=== PATIENT | female | born 1965 | race Caucasian/White ===

== ENCOUNTER 2019-08-11 10:14 | Outpatient (CLI) | payer OTHER, SELFPAY ==
--- NOTE | ~2019-08-11 | MR_ITS ---
EXAMINATION: MR cervical spine wo con DATE: 08/11/2019 12:28 INDICATION: Chronic neck pain. TECHNIQUE: Magnetic resonance imaging (MRI) of the cervical spine was performed without intravenous c ontrast. Sequences included sagittal T2-weighted FSE, sagittal STIR FSE, sagittal T1-weighted FSE, ax ial MERGE, and axial T2-weighted FSE. COMPARISON: None FINDINGS: There is kyphosis of cervical spine. Vertebral body heights are normal. There is mildly dec reased disc height at C4-C5 and C5-C6. The spinal cord signal intensity is normal. The following disc levels are specifically discussed: C2-C3: The disc does not extend beyond the endplate margin. There is mild left uncovertebral joint os teoarthritis. There is severe right and mild left facet joint osteoarthritis. There is no neural fora harper stenosis. There is no central canal stenosis. C3-C4: The disc does not extend beyond the endplate margin. There is no uncovertebral joint osteoarth ritis. There is mild bilateral facet joint osteoarthritis. There is no neural foraminal stenosis. The re is no central canal stenosis. C4-C5: The disc does not extend beyond the endplate margin. There is no uncovertebral joint osteoarth ritis. There is mild bilateral facet joint osteoarthritis. There is no neural foraminal stenosis. The re is no central canal stenosis. C5-C6: There is a right central protrusion. There is mild right uncovertebral joint osteoarthritis. T here is mild bilateral facet joint osteoarthritis. There is no neural foraminal stenosis. There is mi ld central canal stenosis with ventral indentation of the spinal cord. C6-C7: There is a central extrusion. There is no uncovertebral joint osteoarthritis. There is mild bi lateral facet joint osteoarthritis. There is no neural foraminal stenosis. There is mild central maria luz l stenosis with ventral indentation of the spinal cord. C7-T1: The disc does not extend beyond the endplate margin. There is no uncovertebral joint osteoarth ritis. There is mild bilateral facet joint osteoarthritis. There is no neural foraminal stenosis. The re is no central canal stenosis. IMPRESSION: 1. Mild cervical spondylosis. Reviewed, dictated and finalized at location A.
== END 2019-08-11 10:15 | disposition home or self-care (01) ==
PROVIDERS: PCP Family Medicine; Visit Provider Family Medicine
DX: M47.892 Other spondylosis, cervical region (principal)
CPT/HCPCS: 72141

== ENCOUNTER → 2021-07-21 03:39 | Outpatient (CLI) | payer OTHER, SELFPAY ==
[2021-07-21 11:14] LABS: SARS-CoV-2 RNA PCR Negative
== END ==
PROVIDERS: PCP Family Medicine; Visit Provider Family Medicine
DX: R50.9 Fever, unspecified (principal); Z20.822 Contact with and (suspected) exposure to COVID-19
CPT/HCPCS: C9803; U0003; U0005

== ENCOUNTER 2021-09-05 14:34 | Emergency (ER) | payer OTHER, SELFPAY ==
--- NOTE | 2021-09-05 14:40 | ED.URI ---
HPI - URI/Sore Throat General Chief Complaint: Upper Respiratory Infection Stated Complaint: congestion,cough Time Seen by Provider: 09/05/21 14:45 Source: patient and RN notes reviewed Mode of arrival: ambulatory Limitations: no limitations History of Present Illness HPI Narrative: 56-year-old female presents with concern for 4-day history of cough, postnasal drainage, nasal congestion. She reports she has been taking DayQuil and NyQuil with little relief. She denies shortness of breath, fever, body aches, chills, sweats, nausea, vomiting, diarrhea. She denies known sick contacts. MD elicited complaint: cough and sore throat Related Data Home Medications Medication Instructions Recorded Confirmed atorvastatin [Lipitor] 80 mg PO DAILY 09/05/21 09/05/21 Allergies Allergy/AdvReac Type Severity Reaction Status Date / Time No Known Allergies Allergy Verified 09/05/21 14:47 Review of Systems Review of Systems: CONSTITUTIONAL: Denies malaise, chills, sweats, or fever. EYES: Denies visual changes, redness, or discharge. ENT: Reports rhinorrhea, congestion, and sore throat. Denies sinus pain, otalgia CARDIOVASCULAR: Denies chest pain, palpitations, or edema. RESPIRATORY: Reports cough. Denies dyspnea. GASTROINTESTINAL: Denies abdominal pain, nausea, vomiting, diarrhea SKIN: Denies rash or itching. MUSCULOSKELETAL: Denies myalgia. NEUROLOGIC: Denies headache. All systems reviewed & are unremarkable except as noted in HPI and below PMFSH Comments At time of signature, agree with nursing past medical, surgical, social and family history. There is no relevant family history pertinent to the presenting complaint Exam Narrative: GENERAL: Well-appearing, well-nourished, and in no acute distress. HEAD: Normocephalic EYES: PERRLA, conjunctivae clear ENT: Nares clear, clear discharge. Mucous membranes moist. TM pearly urbina with sharp light reflex bilaterally; no tragal tenderness. Oropharynx not erythematous without lesions. Tonsils not enlarged and without exudate, no drooling, no hoarseness, no trismus, uvula midline. NECK: Supple. No lymphadenopathy CHEST: Clear to auscultation, breath sounds equal. No wheezing, rhonchi, rales, or stridor. No respiratory distress, speaks in full sentences. HEART: Regular rate and rhythm. No murmur heard. SKIN: Warm, dry, no rash. NEURO: Alert and oriented x3. PSYCH: Normal mood and affect Course Course Emergency Course: Patient is aware of diagnosis, understands and agrees to treatment plan. Anticipatory guidance given. Patient agrees to follow-up as directed and is aware of reasons to seek care at the emergency department. Portions of this record may have been created with voice recognition software Level of Care: Express Care Visit Vital Signs Vital signs: Reviewed. MDM - URI/Sore Throat MDM Narrative Medical decision making narrative: Differential diagnosis considered: Velasco virus, strep pharyngitis, allergic rhinitis, upper respiratory tract infection, sinusitis, rhinosinusitis, nasopharyngitis. viral pharyngitis, otitis media, otitis externa, pneumonia, bronchitis, viral cough syndrome, viral syndrome, and influenza. Exam findings show no acute concerns or changes; patient is non-toxic appearing and is in no distress. Patient is appropriate for outpatient treatment and follow-up. Offered viral testing, including COVID testing to patient. At this time based on patient's symptoms are consistent with URI Lab Data Attestation: I reviewed the patient's lab results. Critical Care Time Critical Care Time Critical Care Time: No Discharge Plan Discharge Clinical Impression: Upper respiratory infection Qualifiers: URI type: unspecified viral URI Qualified Code(s): J06.9 - Acute upper respiratory infection, unspecified Patient Disposition: Home, Self-Care Condition: Stable Instructions: Upper Respiratory Infection (ED) Additional Instructions: Viral illness may last betwee
[2021-09-05 14:44] VITALS: BP 115/56; PULSE 78; RESP 18; TEMP 36.2; O2SAT 99
[2021-09-05 15:02] VITALS: BP 110/82; PULSE 78
== END 2021-09-05 15:02 | disposition home or self-care (01) ==
PROVIDERS: Emergency Provider Nurse Practitioner; PCP Family Medicine
DX: J06.9 Acute upper respiratory infection, unspecified (principal); E78.00 Pure hypercholesterolemia, unspecified
CPT/HCPCS: 99213; G0463

== ENCOUNTER 2022-06-28 15:19 | Emergency (ER) | payer BC, SELFPAY ==
[2022-06-28 15:33] VITALS: BP 150/99; PULSE 93; RESP 18; TEMP 36.6; O2SAT 99
--- NOTE | 2022-06-28 16:00 | ED.URI ---
HPI - URI/Sore Throat General Chief Complaint: Upper Respiratory Infection Stated Complaint: congestion,cough Time Seen by Provider: 06/28/22 15:55 Source: patient, RN notes reviewed and old records reviewed Mode of arrival: ambulatory Limitations: no limitations History of Present Illness HPI Narrative: 57 year old female presents to express care with complaints of stuffy nose, cough with congestion since around midnight Saturday has felt feverish but has not taken her temperature. Patient reports that she has been taking Robitussin and NyQuil for her symptoms. Patient reports that her has also been ill with similar symptoms. Patient denies any ear pain or sore throat, reports that she would like to be tested for COVID which was negative refused flu swab. Patient states that she has been vaccinated For COVID but has not had flu shot. Needs work note. MD elicited complaint: cough and sore throat Pertinent past history: seasonal allergies and other (bronchitis) Onset (ago): day(s) (2) Pain scale (0-10): 6 Description of mucous: yellow Able to tolerate fluids by mouth: Yes Treatments prior to arrival: other (NyQuil and Robitussin) Related Data Home Medications Medication Instructions Recorded Confirmed lisinopril 5 mg tablet 5 mg PO DAILY 06/28/22 06/28/22 Allergies Allergy/AdvReac Type Severity Reaction Status Date / Time No Known Allergies Allergy Verified 06/28/22 15:35 Review of Systems Review of Systems: CONSTITUTIONAL: Reports malaise, chills, sweats, unknown if fever.has had hot flashes EYES: Denies visual changes, redness, or discharge. ENT: Reports rhinorrhea, congestion, sinus pain, otalgia and sore throat. CARDIOVASCULAR: Denies chest pain, palpitations, or edema. RESPIRATORY: Reports productive cough.? Denies dyspnea. GASTROINTESTINAL: Denies abdominal pain, nausea, vomiting, diarrhea SKIN: Denies rash or itching. MUSCULOSKELETAL: Denies myalgia. NEUROLOGIC: Denies headache. 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 There is no relevant family history pertinent to the presenting complaint Exam Narrative: GENERAL: Well-appearing, well-nourished, and in no acute distress. HEAD: Normocephalic EYES: PERRLA, conjunctivae clear ENT: Nares clear, turbinates edematous and erythematous, yellowish discharge. Mucous membranes moist. TM pearly urbina with dull light reflex bilaterally; no tragal tenderness. Oropharynx erythematous without lesions. Tonsils red minimally enlarged and without exudate, no drooling, no hoarseness, no trismus, uvula midline. post nasal drainage noted. NECK: Supple. No lymphadenopathy CHEST: Clear to auscultation, breath sounds equal. No wheezing, rhonchi, rales, or stridor. No respiratory distress, speaks in full sentences.loose cough, SAO2 99% on room air HEART: Regular rate and rhythm. No murmur heard. SKIN: Warm, dry, no rash. NEURO: Alert and oriented x3. PSYCH: Normal mood and affect Course Course Emergency Course: Patient is aware of diagnosis, understands and agrees to treatment plan.? Anticipatory guidance given.? Patient agrees to follow-up as directed and is aware of reasons to seek care at the emergency department. Portions
== END 2022-06-28 16:17 | disposition home or self-care (01) ==
PROVIDERS: Emergency Provider Registered Nurse; PCP Family Medicine
DX: J06.9 Acute upper respiratory infection, unspecified (principal); Z20.822 Contact with and (suspected) exposure to COVID-19; E78.00 Pure hypercholesterolemia, unspecified; N80.9 Endometriosis, unspecified; I10 Essential (primary) hypertension
CPT/HCPCS: 87426; 99213; C9803; G0463

== ENCOUNTER 2022-07-28 18:26 | Emergency (ER) | payer BC, SELFPAY ==
--- NOTE | 2022-07-28 18:49 | ED.GENADULT ---
HPI - General Adult General Chief complaint: Upper Respiratory Infection Stated complaint: congestion,cough Time Seen by Provider: 07/28/22 18:49 Source: patient Mode of arrival: ambulatory Limitations: no limitations History of Present Illness HPI narrative: 57-year-old female patient presents to the [facility] with complaints of cold symptoms that started yesterday. Denies fevers but states she has had some chills. States she has had a cough, runny nose fatigue and just overall not feeling well. Patient denies taking anything for her symptoms. Related Data Home Medications Medication Instructions Recorded Confirmed lisinopril 5 mg tablet 5 mg PO DAILY 07/28/22 07/28/22 Allergies Allergy/AdvReac Type Severity Reaction Status Date / Time No Known Allergies Allergy Verified 07/28/22 18:53 Review of Systems Review of Systems: CONSTITUTIONAL: Denies fever, positive chills, or sweats. EYES: Denies visual changes, redness, or discharge. ENT:positive rhinorrhea, congestion, denies sore throat, or otalgia. CARDIOVASCULAR: Denies chest pain, palpitations, or edema. RESPIRATORY: positive cough or dyspnea. GASTROINTESTINAL: Denies abdominal pain, nausea, vomiting, or diarrhea. GENITOURINARY: Denies dysuria or hematuria. SKIN: Denies rash or itching. MUSCULOSKELETAL: Denies back pain, joint pain, or myalgia. NEUROLOGIC: Denies headache, numbness, or weakness. PSYCHIATRIC: Denies anxiety or depression. 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 There is no relevant family history pertinent to the presenting complaint. Exam Narrative: GENERAL: Well-appearing, well-nourished, and in no acute distress. HEAD: Normocephalic, atraumatic. EYES: PERRLA and EOMI. ENT: Nares with erythema edema noted bilaterally, no rhinorrhea or epistaxis. Mucous membranes moist. posterior pharynx with no erythema, tonsillar enlargement, exudates or lesions present. Bilateral TMs are clear with no erythema or foreign bodies the canal. NECK: Supple. No lymphadenopathy CHEST: Clear to auscultation. No respiratory distress. No wheezing noted. Patient able talk in clear complete sentences. HEART: Regular rate and rhythm. No murmur heard. Normal peripheral pulses. ABDOMEN: Soft, nontender, nondistended, normal active bowel sounds. EXTREMITIES: Normal range of motion. No edema. SKIN: Warm, dry, no rash. NEURO: No focal deficits. Alert and oriented x3. Course Course Level of Care: Express Care Visit Vital Signs Vital signs: Vital Signs Temperature 36.3 C L 07/28/22 18:53 Pulse Rate 93 07/28/22 18:53 Respiratory Rate 20 07/28/22 18:53 Blood Pressure 103/58 L 07/28/22 18:53 Pulse Oximetry 100 07/28/22 18:53 Oxygen Delivery Room Air 07/28/22 18:53 Temperature 36.3 C L 07/28/22 19:00 Pulse Rate 93 07/28/22 19:00 Respiratory Rate 20 07/28/22 19:00 Blood Pressure 103/58 L 07/28/22 19:00 Pulse Oximetry 100 07/28/22 19:00 Oxygen Delivery Room Air 07/28/22 19:00 Vital signs reviewed. Blood pressure taken manually was 106/70. Medical Decision Making MDM Narrative Medical decision making narrative: Discussed with patient that her COVID test today is negative however we will do a PCR incident to the lab. Discussed with patient she most likely
[2022-07-28 18:53] VITALS: BP 103/58; PULSE 93; RESP 20; TEMP 36.3; O2SAT 100
[2022-07-28 19:00] VITALS: BP 103/58; PULSE 93; RESP 20; TEMP 36.3; O2SAT 100
[2022-07-28 19:15] VITALS: BP 106/70
[2022-07-29 14:53] LABS: SARS-CoV-2 RNA PCR Negative
== END 2022-07-28 19:15 | disposition home or self-care (01) ==
PROVIDERS: Emergency Provider Nurse Practitioner Family; PCP Family Medicine
DX: B34.9 Viral infection, unspecified (principal); Z20.822 Contact with and (suspected) exposure to COVID-19; E78.00 Pure hypercholesterolemia, unspecified; N80.9 Endometriosis, unspecified; I10 Essential (primary) hypertension
CPT/HCPCS: 87426; 99213; C9803; G0463; U0003; U0005

== ENCOUNTER 2022-12-17 14:39 | Emergency (ER) | payer BC, SELFPAY ==
[2022-12-17 14:48] VITALS: BP 148/82; PULSE 79; RESP 18; TEMP 36.6; O2SAT 99
--- NOTE | 2022-12-17 14:49 | ED.EYEPROB ---
HPI - Eye Problem General Chief complaint: Eye Problems Stated complaint: swollen rt eye,rash Time Seen by Provider: 12/17/22 14:53 Source: patient Mode of arrival: ambulatory Limitations: no limitations History of Present Illness HPI Narrative: 57-year-old female presented for complaint of rash to face and under the right ear and base of neck, also with right eye swelling. Patient states the rash extends across the forehead, described as bumps. Endorses some itching and pain to the sites. Rates pain 6/10. Denies drainage. Reports the right eye was swollen since yesterday morning, denies crust or drainage. Eye was not swollen shut. Denies sick contacts. Denies recent illness or stress. States she works her yard but nothing out of the ordinary. Denies lip, tongue, or throat swelling, shortness of breath or wheezing. Denies changes to soap, detergent, lotion, or any other exposures. No one else in the house or any contacts with similar symptoms. She has applied neosporin and calamine without significant relief. Related Data Home Medications Medication Instructions Recorded Confirmed lisinopril 5 mg tablet 5 mg PO DAILY 07/28/22 12/17/22 allopurinol 100 mg tablet 100 mg PO DAILY 12/17/22 12/17/22 atorvastatin 40 mg tablet 40 mg PO DAILY 12/17/22 12/17/22 Allergies Allergy/AdvReac Type Severity Reaction Status Date / Time No Known Allergies Allergy Verified 12/17/22 14:58 Review of Systems Review of Systems: CONSTITUTIONAL: Denies body aches, fever, chills, or sweats. EYES: Denies visual changes, redness, or discharge. ENT: Denies rhinorrhea, congestion CARDIOVASCULAR: Denies chest pain, palpitations, or edema. RESPIRATORY: Denies cough or dyspnea. GASTROINTESTINAL: Denies abdominal pain, nausea, vomiting, or diarrhea. SKIN: reports rash MUSCULOSKELETAL: Denies back pain, joint pain, or myalgia. NEUROLOGIC: Denies headache, numbness, tingling, or weakness. 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 Please see nursing chart for further information. There is no relevant family history pertinent to the presenting complaint Exam Narrative: GENERAL: Well-appearing HEAD: Normocephalic, atraumatic. EYES: Mild right periorbital swelling, no occlusion, no purulent drainage; conjunctivae clear, and EOMI. ENT: Mucous membranes moist. Oropharynx without edema, erythema or lesions. NECK: Supple. No lymphadenopathy CHEST: Clear to auscultation. HEART: Regular rate and rhythm. SKIN: Warm, dry. Scattered erythematous papules noted across the forehead, posterior to the right ear approx 2.5cm diameter, and base of the hairline on the neck approx 2cm diameter NEURO: Alert and oriented x3. Course Course Emergency Course: Patient is aware of diagnosis, understands and agrees to treatment plan. Anticipatory guidance given. Patient agrees to follow-up as directed and is aware of reasons to seek care at the emergency department. Portions of this record may have been created with voice recognition software Level of Care: Express Care Visit Vital Signs Vital signs: Vital Signs Temperature 97.9 F 12/17/22 14:48 Pulse Rate 79 12/17/22 14:48 Respiratory Rate 18 12/17/22 14:48 Blood Pressure 148/82 H 12/17/22 14:48
== END 2022-12-17 15:11 | disposition home or self-care (01) ==
PROVIDERS: Emergency Provider Nurse Practitioner Family; PCP Family Medicine
DX: L30.9 Dermatitis, unspecified (principal); E78.00 Pure hypercholesterolemia, unspecified; I10 Essential (primary) hypertension; N80.9 Endometriosis, unspecified
CPT/HCPCS: 99213; G0463

== ENCOUNTER 2023-02-04 10:57 | Emergency (ER) | payer BC, SELFPAY ==
[2023-02-04 11:19] VITALS: BP 112/72; PULSE 74; RESP 18; TEMP 36.4; O2SAT 98
--- NOTE | 2023-02-04 11:30 | ED.URI ---
HPI - URI/Sore Throat General Chief Complaint: Upper Respiratory Infection Stated Complaint: Cough,Congestion Time Seen by Provider: 02/04/23 11:30 Source: patient Mode of arrival: ambulatory Limitations: no limitations History of Present Illness HPI Narrative: 57-year-old female presents with complaint of nasal congestion, cough, fatigue sodium last night. Afebrile reports that she had sore throat this morning but has resolved. Denies nausea vomiting. Patient took NyQuil last night to treat symptoms. No chest pain or shortness of breath. All systems reviewed and negative except as noted above. Related Data Home Medications Medication Instructions Recorded Confirmed lisinopril 5 mg tablet 5 mg PO DAILY 07/28/22 02/04/23 allopurinol 100 mg tablet 100 mg PO DAILY 12/17/22 02/04/23 atorvastatin 40 mg tablet 40 mg PO DAILY 12/17/22 02/04/23 aspirin 81 mg tablet,delayed 81 mg PO DAILY 02/04/23 02/04/23 release ergocalciferol (vitamin D2) 1,250 50,000 unit PO WEEKLY 02/04/23 02/04/23 mcg (50,000 unit) capsule metformin 500 mg tablet,extended 500 mg PO BID 02/04/23 02/04/23 release 24 hr Allergies Allergy/AdvReac Type Severity Reaction Status Date / Time No Known Allergies Allergy Verified 02/04/23 11:15 Review of Systems Review of Systems: CONSTITUTIONAL: Denies fever, chills, or sweats. EYES: Denies visual changes, redness, or discharge. ENT: Reports rhinorrhea, congestion, sore throat. Denies otalgia. CARDIOVASCULAR: Denies chest pain, palpitations, or edema. RESPIRATORY: reports cough. Denies dyspnea. GASTROINTESTINAL: Denies abdominal pain, nausea, vomiting, or diarrhea. GENITOURINARY: Denies dysuria or hematuria. SKIN: Denies rash or itching. MUSCULOSKELETAL: Denies back pain, joint pain, or myalgia. NEUROLOGIC: Denies headache, numbness, or weakness. PSYCHIATRIC: Denies anxiety or depression. All other systems reviewed are negative, except as documented in HPI. 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 There is no relevant family history pertinent to the presenting complaint. Exam Narrative: GENERAL: This is a well-nourished, well-developed patient, Patient ill-appearing but in no acute distress. HEAD: normocephalic, atraumatic. EYES: PERRL. Sclera clear/white. Vision is grossly intact. EARS: External ears normal, auditory canals clear and without drainage, TMs normal without perforation. Hearing grossly intact. NOSE: External nose normal with clear nasal drainage, moderate congestion with erythema and swelling to bilateral nares. THROAT: Mucous membranes moist, Mild erythema to posterior pharynx with postnasal drainage. NECK: Neck supple, non-tender without lymphadenopathy, masses or thyromegaly. CARDIOVASCULAR: Regular rate and rhythm without murmurs, gallops, or rubs. RESPIRATORY: Clear to auscultation. Breath sounds equal bilaterally. No wheezes, rales, or rhonchi. SKIN: warm, Dry, intact with no suspicious lesions or rash, good texture and turgor. NEURO: awake, alert, and oriented to person, place and time. There were no obvious focal neurologic abnormalities. EXTREMITIES: No joint tenderness, effusion, or edema noted. Course Course Level of Care: Express Care Visit Vital Signs Vital signs: Vital Signs Temperature
== END 2023-02-04 11:45 | disposition home or self-care (01) ==
PROVIDERS: Emergency Provider Nurse Practitioner Family; PCP Family Medicine
DX: J06.9 Acute upper respiratory infection, unspecified (principal); E78.00 Pure hypercholesterolemia, unspecified; N80.9 Endometriosis, unspecified; I10 Essential (primary) hypertension; Z79.82 Long term (current) use of aspirin
CPT/HCPCS: 99213; G0463

== ENCOUNTER 2023-04-19 10:49 | Emergency (ER) | payer BC, SELFPAY ==
[2023-04-19 10:58] VITALS: BP 94/68; PULSE 73; RESP 16; TEMP 36.1; O2SAT 100
--- NOTE | 2023-04-19 11:59 | ED.GENADULT ---
HPI - General Adult General Chief complaint: Urogenital-Female Stated complaint: Female Urogenital Source: patient, RN notes reviewed and old records reviewed Mode of arrival: ambulatory Limitations: no limitations History of Present Illness HPI narrative: 57-year-old female presents to [facility] with complaint of vaginal itching, with slight amount of white thick vaginal discharge that started 10 days ago. Patient states has tried Vagisil and baking soda baths without relief. Patient denies urinary symptoms. Patient denies concerns for STDs. Patient denies sores or lesions in her vaginal area. Patient states she is not diabetic. Related Data Home Medications Medication Instructions Recorded Confirmed lisinopril 5 mg tablet 5 mg PO DAILY 07/28/22 04/19/23 allopurinol 100 mg tablet 100 mg PO DAILY 12/17/22 04/19/23 atorvastatin 40 mg tablet 40 mg PO DAILY 12/17/22 04/19/23 aspirin 81 mg tablet,delayed 81 mg PO DAILY 02/04/23 04/19/23 release ergocalciferol (vitamin D2) 1,250 50,000 unit PO WEEKLY 02/04/23 04/19/23 mcg (50,000 unit) capsule metformin 500 mg tablet,extended 500 mg PO BID 02/04/23 04/19/23 release 24 hr empagliflozin 25 mg tablet 25 mg PO DAILY 04/19/23 04/19/23 (Jardiance) furosemide 20 mg tablet 10 mg PO DAILY 04/19/23 04/19/23 Allergies Allergy/AdvReac Type Severity Reaction Status Date / Time No Known Allergies Allergy Verified 04/19/23 11:08 Review of Systems Review of Systems: All systems reviewed & are unremarkable except as noted in HPI and below Constitutional: Constitutional: Reports no additional constitutional complaints Eyes: Eyes: Reports no additional eye complaints ENT: Reports system reviewed and no additional complaints, except as documented Cardiovascular: Cardiovascular: Reports no additional cardiovascular complaints Respiratory: Respiratory: Reports no additional respiratory complaints Genitourinary: Genitourinary: Denies nocturia, Reports genital pruritis, Denies genital lesions, Denies dysuria, Denies pelvic pain, Denies prolapse symptoms, Denies urinary incontinence, Denies urinary hesitancy, Denies urinary urgency, Reports vaginal discharge ( Thick white), Denies vaginal dryness, Denies vaginal odor and Reports vaginal pruritus Neurologic: Reports system reviewed and no additional complaints, except as documented PMFSH Past Medical History Medical History Elevated cholesterol Endometriosis determined by laparoscopy Hypertension Postmenopausal Seasonal allergies Surgical History Surgical History Hx of laparoscopy X2 Social History Social History Smoking status: Never smoker Living arrangements: with family 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 There is no relevant family history pertinent to the patient complaint. Exam Const: General: cooperative, healthy appearing, no acute distress and well nourished Nutritional Appearance: well nourished Orientation/consciousness: patient oriented x3 Limitations: no limitations HENMT: Head: normal to inspection and normocephalic Ears: external ears normal, TM's normal bilaterally, mastoids normal and Abnormal EAC present Face/Nose/Sinus: normal facial exam Face and sinus: normal facial exam Mouth: Yes Normal oral and palatal mucosa present, Yes oropharynx normal and Yes moist mucous membranes Throat: posterior oropharynx normal, tonsils normal, uvula midline and no uvular edema Eyes: General: appearance normal, both eyes and all related structures Sclera: sclerae normal Pupils: Equal, round and reactive pupils present Resp: Ef
== END 2023-04-19 12:06 | disposition home or self-care (01) ==
PROVIDERS: Emergency Provider Registered Nurse; PCP Family Medicine
DX: B37.31 Acute candidiasis of vulva and vagina (principal); E78.00 Pure hypercholesterolemia, unspecified; I10 Essential (primary) hypertension; N80.9 Endometriosis, unspecified; Z79.82 Long term (current) use of aspirin
CPT/HCPCS: 99213; G0463

== ENCOUNTER 2024-01-28 10:52 | Emergency (ER) | payer BC, SELFPAY ==
[2024-01-28 10:59] VITALS: BP 119/74; PULSE 86; RESP 16; TEMP 36.2; O2SAT 100
--- NOTE | 2024-01-28 11:11 | ED.URI ---
HPI - URI/Sore Throat General Chief Complaint: Upper Respiratory Infection Stated Complaint: congestion Time Seen by Provider: 01/28/24 11:11 Source: patient and RN notes reviewed Mode of arrival: ambulatory Limitations: no limitations History of Present Illness HPI Narrative: 58-year-old female presents concern for one-week history of sinus congestion, pressure, dark yellow drainage, fatigue, cough. She reports she has been taking DayQuil and NyQuil without relief. MD elicited complaint: cough and nasal congestion Related Data Home Medications Medication Instructions Recorded Confirmed lisinopril 5 mg tablet 5 mg PO DAILY 07/28/22 01/28/24 allopurinol 100 mg tablet 100 mg PO DAILY 12/17/22 01/28/24 atorvastatin 40 mg tablet 40 mg PO DAILY 12/17/22 01/28/24 aspirin 81 mg tablet,delayed 81 mg PO DAILY 02/04/23 01/28/24 release ergocalciferol (vitamin D2) 1,250 50,000 unit PO WEEKLY 02/04/23 01/28/24 mcg (50,000 unit) capsule empagliflozin 25 mg tablet 25 mg PO DAILY 04/19/23 01/28/24 (Jardiance) furosemide 20 mg tablet 10 mg PO DAILY 04/19/23 01/28/24 mirtazapine 30 mg tablet 30 mg PO HS 01/28/24 01/28/24 phentermine 30 mg capsule 30 mg PO DAILY 01/28/24 01/28/24 Allergies Allergy/AdvReac Type Severity Reaction Status Date / Time No Known Allergies Allergy Verified 01/28/24 11:00 Review of Systems Review of Systems: CONSTITUTIONAL: Reports malaise, fatigue. Denies chills, sweats, or fever. EYES: Denies visual changes, redness, or discharge. ENT: Reports rhinorrhea, congestion, sinus pain CARDIOVASCULAR: Denies chest pain, palpitations, or edema. RESPIRATORY: Reports cough. Denies dyspnea. GASTROINTESTINAL: Denies abdominal pain, nausea, vomiting, diarrhea SKIN: Denies rash or itching. MUSCULOSKELETAL: Denies myalgia. NEUROLOGIC: Denies headache. 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 There is no relevant family history pertinent to the presenting complaint Exam Narrative: GENERAL: Well-appearing, well-nourished, and in no acute distress. HEAD: Normocephalic EYES: PERRLA, conjunctivae clear ENT: Nares clear. Mucous membranes moist. TM pearly urbina with dull light reflex bilaterally; no tragal tenderness. Oropharynx not erythematous without lesions. Tonsils not enlarged and without exudate, no drooling, no hoarseness, no trismus, uvula midline. NECK: Supple. No lymphadenopathy CHEST: Clear to auscultation, breath sounds equal. No wheezing, rhonchi, rales, or stridor. No respiratory distress, speaks in full sentences. HEART: Regular rate and rhythm. No murmur heard. SKIN: Warm, dry, no rash. NEURO: Alert and oriented x3. PSYCH: Normal mood and affect Course Course Emergency Course: Patient is aware of diagnosis, understands and agrees to treatment plan. Anticipatory guidance given. Patient agrees to follow-up as directed and is aware of reasons to seek care at the emergency department. Portions of this record may have been created with voice recognition software Level of Care: Express Care Visit Vital Signs Vital signs: Vital Signs Temperature 97.1 F L 01/28/24 10:59 Pulse Rate 86 01/28/24 10:59 Respiratory Rate 16 01/28/24 10:59 Blood Pressure 119/74
== END 2024-01-28 11:19 | disposition home or self-care (01) ==
PROVIDERS: Emergency Provider Nurse Practitioner; PCP Family Medicine
DX: J32.9 Chronic sinusitis, unspecified (principal); J40 Bronchitis, not specified as acute or chronic; E78.00 Pure hypercholesterolemia, unspecified; I10 Essential (primary) hypertension; N80.9 Endometriosis, unspecified; Z79.82 Long term (current) use of aspirin
CPT/HCPCS: 99213; G0463

== ENCOUNTER 2025-03-28 10:50 | Emergency (ER) | payer BC, SELFPAY ==
--- OUTSIDE RECORDS SUMMARY | 2024-05-26 06:00 | XMS_ITS ---
Author Organization [facility] Address [address] [place] [address] Care Team Providers Care Community Education Coordinator Name Role Phone Keshia Sosa Primary Care Provider [phone] REASON FOR VISIT 3 Month Psych F/U & Med Refill Social History Sex Assigned At : Social History Observation Description Sex Assigned At Female Encounters Encounter Location Date Provider Diagnosis [place] [address] [place] [address] 05/26/2024 Keshia Sosa Plan Of Treatment No Information Progress Notes * Chris ALLREDB:1965 ([age] yo F)Acc No.[id number]:05/26/2024 UNLOCKED PROGRESS NOTE Patient: Ericka SONG Provider: ASTER Navarro, SALES REP, CULL GRADER-C :1965 A ge:59 Y S ex:Female Date:05/26/2024 Address:[address] [facility] Subjective: * Chief Complaints: * 1 . 3 Month Psych F/U & Med Refill. * Medical History: Objective: * Vitals: Assessment: Plan: * Treatment: * * Electronic signature of Leticia Sosa , [id number] on 03/28/2025 at 10:52 AM ROLL TENSION TESTER Sign off status: Pending * Provider: ASTER Navarro, SALES REP, CULL GRADER-C Date: 0 05/26/2024 Generated for Eliazar clarke/Annalise/Danielitting on: 1 05/28/2024 10:52 AM ROLL TENSION TESTER
--- OUTSIDE RECORDS SUMMARY | 2025-03-28 10:52 | XMS_ITS | Clinical Summary ---
Author Organization [facility] Address [address] [place] [address] Care Team Providers Care Block Sawyer Name Role Phone Cristopher Husain MD Primary Care Provider [phone] Allergies No known active allergies Medications atorvastatin 10 MG tablet Take 10 mg by mouth nightly at bedtime. 2 02/24/2019 Active vitamin D2, ergocalciferol, 14149 UNITS capsule TK 1 C PO Q WK UTD 2 02/24/2019 Active Social History Tobacco Use Types Packs/Day Years Used Date Smoking Tobacco: Never Smokeless Tobacco: Never Alcohol Use Standard Drinks/Week Comments No 0 (1 standard drink = 0.6 oz pur e alcohol) AUDIT-C Answer Date Recorded Frequency of Alcohol Consumption Never 04/19/2019 Average Number of Drinks Not on file 019 Frequency of Binge Drinking Not on file 05/2018 Comments No Sex and Gender Information Value Date Recorded Sex Assigned at Not on file Legal Sex Female 7:49 PM CDT Gender Identity Not on file Sexual Orientation Not on file Last Filed Vital Signs Vital Sign Reading Time Taken Comments Blood Pressure 130/66 04/25/2024 2:54 PM TELEGRAPH EDITOR Pulse 88 04/25/2024 2:54 PM TELEGRAPH EDITOR Temperature 36.7 C (98 F) 04/25/2024 2:54 PM TELEGRAPH EDITOR Respiratory Rate 20 04/25/2024 2:54 PM TELEGRAPH EDITOR Oxygen Saturation 98% 04/25/2024 2:54 PM TELEGRAPH EDITOR Inhaled Oxygen Concentration - - Weight 104.3 kg (229 lb 15 oz) 04/25/2024 12:23 PM TELEGRAPH EDITOR Height 162.6 cm (5' 4) 04/25/2024 12:23 PM TELEGRAPH EDITOR Body Mass Index 39.47 04/25/2024 12:23 PM TELEGRAPH EDITOR Plan of Treatment Health Maintenance Due Date Last Done Comments Cervical Cancer Screening Pa p Smear (Age 30 to 64) Every 3 Years 1967 Colorectal Cancer Screening Colonoscopy (10 Years) 1967 Annual Physical 1970 Hepatitis C 1985 DTaP, Tdap and Td Vaccines ( 1 - Tdap) 1986 Hepatitis B Vaccines (1 of 3 - 19+ 3-dose series) 1986 Cervical Cancer Screening Pa p with HPV Testing (Age 30 to 64) Every 5 Years 1997 Cervical Cancer Screening wi th HPV 1997 Mammogram Screening 2007 Pneumococcal Vaccine: 50+ Years (1 of 1 - PCV) 2017 Zoster Vaccines (1 of 2) 2017 COVID-19 Vaccine (4 - 2024-2 6 season) 2025 04/18/2022, 03/30/2021, 08/27/2020 Influenza Adult (#1) 2025 03/12/2019 Hepatitis A Vaccines Aged Out No long er eligible based on patient's age to complete this topic Meningococcal B Vaccine Aged Out No l onger eligible based on patient's age to complete this topic Meningococcal Vaccine Aged Out No rocío grecia eligible based on patient's age to complete this topic RSV Immunizations Under 20 Months Aged Out No longer eligible b ased on patient's age to complete this topic Insurance [employer] MEDICA[employer] Care Teams Block Sawyer Relationship Specialty Start Date End Date Cristopher Husain MD PCP - General FAMILY PRACTICE 04/19/19
--- OUTSIDE RECORDS SUMMARY | 2025-03-28 10:52 | XMS_ITS | Clinical Summary ---
Author Organization [facility] Address [address] [facility] [place] [address] Care Team Providers Care Medical Interpreter Name Role Phone Cristopher Husain MD Primary Care Provider [phone] Elvi Pascual APRN, RAILCAR FOREMAN Unavailable [phone] Allergies Active Allergy Reactions Criticality Noted Date Comments Metformin Diarrhea 11/03/2024 Medications allopurinol (ZYLOPRIM) 100 MG Tablet Take 100 mg by mouth daily. 09/09/2024 Active ARIPiprazole (ABILIFY) 5 MG Tablet Take 5 mg by mouth daily. 10/29/2024 Active atorvastatin (LIPITOR) 40 MG Tablet Take 40 mg by mouth daily. 08/06/2024 Active ergocalciferol (VITAMIN D) 21103 UNIT Capsule Take 1.25 mg by mouth once a week. 10/29/2024 Active glipiZIDE (GLUCOTROL) 5 MG Tablet Take 5 mg by mouth daily (with breakfast). 09/09/2024 Active hydrOXYzine (ATARAX) 50 MG Tablet Take 50 mg by mouth nightly as needed. 10/29/2024 Active Jardiance 25 MG Tablet Take 25 mg by mouth daily. 09/09/2024 Active Mirtazapine (REMERON) 45 MG Tablet Take 45 mg by mouth nightly. 10/29/2024 Active lisinopril (PRINIVIL, ZESTRIL) 5 MG Tablet Take 0.5 Tablets by mouth every other day. 01/06/2025 Active furosemide (LASIX) 20 MG Tablet Take 20 mg by mouth every other day. Active Active Problems Problem Noted Date Diagnosed Date Status post placement of implantable loop record er 01/06/2025 Lower limb pain, inferior, right 11/03/2024 Prediabetes 11/03/2024 Neuropathy 06/01/2024 Porokeratosis 06/01/2024 Irritability and anger 09/02/2023 Peripheral edema 03/27/2023 Pain in pelvis 03/20/2023 Gout 09/03/2022 Obesity 08/24/2022 Tear of medial meniscus of knee 03/01/2022 Bronchitis 07/19/2021 Hypertensive disorder 12/15/2020 Vitamin D deficiency 11/17/2020 Hypertriglyceridemia 11/17/2020 Hyperlipidemia 11/17/2020 CHIQUI (obstructive sleep apnea) 11/17/2020 Polyarthropathy 11/17/2020 Cervical spondylosis 11/17/2020 Calcaneal spur 11/17/2020 Encounters Date Type Department Care Team Description 01/06/2025 10:00 AM CDT Office Visit [facility] - Cardiology [facility] [address] [place] [id number] Elvi Pascual APRN, SHOSHANA Secondary hypertension (Primary Dx); Hyperlipidemia, unspecified hyperlipidemia type; Status post placement of implantable loop recorder Discharge Disposition: Discharged to home or Selfcare 01/06/2025 Travel from Last 3 Months Social History Tobacco Use Types Packs/Day Years Used Date Smoking Tobacco: Never Smokeless Tobacco: Never Tobacco Cessation:Counseling Given: No Comments Unknown Sex and Gender Information Value Date Recorded Sex Assigned at Not on file Legal Sex Female 2:55 PM CDT Gender Identity Not on file Sexual Orientation Not on file Last Filed Vital Signs Vital Sign Reading Time Taken Comments Blood Pressure 112/88 01/06/2025 10:22 AM CDT Pulse 77 01/06/2025 10:22 AM CDT Temperature 36.4 C (97.5 F) 01/06/2025 10:22 AM CDT Respiratory Rate 16 01/06/2025 10:2 2 AM CDT Oxygen Saturation 99% 01/06/2025 10: 22 AM CDT Inhaled Oxygen Concentration - - Weight 115.8 kg (255 lb 6.4 oz) 025 10:22 AM CDT Height 162.6 cm (5' 4) 01/06/2025 10:2 2 AM CDT Body Mass Index 43.84 01/06/2025 10:22 AM CDT Plan of Treatment Upcoming Encounters Date Type Department Care Team (Late st Contact Info) Description 06/28/2025 10:30 AM CYBER SPECIAL AGENT Office Visit [facility] - Cardiology - [place] [address] [place] [address] Elvi Pascual APRN, RAILCAR FOREMAN [address] [place] [id number] Health Maintenance Due Date Last Done Comments Hepatitis C Virus (HCV) Screening 1967 Mammogram 1967 TdaP Immunization 1967 Hepatitis B Immunization (1 of 3 - 19+ 3-dose series) 1986 Cologuard 2012 Colonoscopy 2012 Colorectal Cancer Screening 2012 Immunochemical Fecal Occult Blood 2012 Pneumococcal Immunization (5 0+ years) (1 of 1 - PCV) 2017 Respiratory Syncytial Virus (RSV) Immunization (Adult) (1 - Risk 50-74 years 1-dose series) 2017 Zoster Immunization (1 of 2) 2017 Influenza Immunization (#1) 2025 03/12/2019 SARS-COV-2 Immunization ( season) 2025 04/18/2022, 03/30/2021, 08/27/2020 Human Papillomavirus (HPV) Immunization Aged Out No longer eligible b ased on patient's age to complete this topic Meningococcal Immunization (ACWY) Aged Out No longer eligible b ased on patient's age to complete this topic Rotavirus Immunization Aged Out No lo nger eligible based on patient's age to complete this topic Procedures Procedure Name Priority Date/Time Associated Diagnosis Comments EKG 12 LEAD Routine 01/06/2025 10:31 AM CDT Secondary hypertension from Last 3 Months Results * EKG 12 LEAD (01/06/2025 10:31 AM CDT) Ventricular Rate 75 BPM EXTERNAL EKG Atrial Rate 75 BPM EXTERNAL EKG P-R Interval 144 ms EXTERNAL EKG QRS Duration 94 ms EXTERNAL EKG Q-T Duration 382 ms EXTERNAL EKG QTC CALCULATION 426 ms EXTERNAL EKG P [place] 29 degrees EXTERNAL EKG R [place] -74 degrees EXTERNAL EKG T [place] 16 degrees EXTERNAL EKG 01/06/2025 10:3 1 AM CDT Impressions EXTERNAL EKG - 02/07/2025 9:51 PM CDT Normal sinus rhythm Left anterior fascicular block Abnormal ECG ~ Confirmed by Donna Myers ([id number]) on 02/07/2025 9:51:47 PM Narrative Procedure Note Donna Myers MD - 02/07/2025 IMPRESSION: Normal sinus rhythm Left anterior fascicular block Abnormal ECG ~ Confirmed by Donna Myers ([id number]) on 02/07/2025 9:51:47 PM Elvi Pascual APRN, SHOSHANA IMG ECG ORDERABLES F inal Result EXTERNAL EKG from Last 3 Months Insurance MEDICAID [place] Care Teams Medical Interpreter Relationship Specialty Start Date End Date Cristopher Husain MD [address] [place] [id number] PCP - General Family Medicine 01/06/25 Elvi Pascual APRN, RAILCAR FOREMAN [address] [id number] Nurse Practitioner Cardiology 01/07/25
--- OUTSIDE RECORDS SUMMARY | 2025-03-28 10:52 | XMS_ITS | Patient Health Record ---
Author Organization [facility] Address [address] [place] [address] Care Team Providers Care Patient Support Assistant Name Role Phone Keshia Sosa Primary Care Provider Allergies No Known Allergies Reason For Referral No Information Medications Medication SIG (Take, Route, Frequency, Duration) Notes Start Date End Date Status Jardiance 25 MG 1 tablet Orally Once a day Active Lisinopril 5 MG 1 tablet Orally Once a day Active Vitamin D (Ergocalciferol) 74018 UNIT 1 capsule Orally Active Mirtazapine 45 MG 0.5 tablet at bedtim e Orally Once a day; Duration: 30 days Active hydrOXYzine HCl 50 MG 1-2 tablets at night Orally Once a day; Duration: 30 days As needed Active Allopurinol 100 MG 1 tablet Orally Once a day Active Vraylar 1.5 MG 1 capsule Orally Onc e a day; Duration: 30 days Active Atorvastatin Calcium 40 MG 1 tablet Oral ly Once a day Active Furosemide 20 MG 1 tablet Orally Once a day Active Social History Tobacco Use: Social History Observation Description Date Details (start date - stop date) Never Smoker NA - NA Sex Assigned At : Social History Observation Description Sex Assigned At Female Tobacco Control (Standard) Question Answer Notes Tobacco use: Nonsmoker Problems Problem Type SNOMED Code ICD Code Onset Dates Problem Status W/U Status Risk Notes Problem Anxiety disorder (181572697) Anxiety disorder, unspecified (F41.9) 4 Active confirmed Problem Mood disorder (47714243) Mood disorder (F39) Active confirmed Problem Posttraumatic stress disorder (92640583) PTSD (post-traumatic stress disorder) (F43.10) Active confirmed Problem Overweight (393455862) Over weight (E66.3) Active confirmed Vital Signs Heart Rate 74 /min 09/15/2024 Respiratory Rate 16 /min 09/15/2024 Blood pressure diastolic 64 mm Hg 09/15/2024 Oximetry 94 % 09/15/2024 Height 5 ft 4 in in 09/15/2024 Blood pressure systolic 100 mm Hg 09/15/2024 Weight 245 lb 4 oz lbs 09/15/2024 BMI 42.09 kg/m2 09/15/2024 Encounters Encounter Location Date Provider Diagnosis [address] [address] 06/04/2024 Keshia Ian Anxiety disorder, unspecified F41.9 and PTSD (post-traumatic stress disorder) F43.[address] [address] 07/02/2024 Keshia Ian Anxiety disorder, unspecified F41.9 and PTSD (post-traumatic stress disorder) F43.[address] [address] 07/30/2024 Keshia Ian Anxiety disorder, unspecified F41.9 and PTSD (post-traumatic stress disorder) F43.10 [address] [place] [address] [facility] [place] [address] 09/15/2024 Keshia Ian Anxiety disorder, unspecified F41.9 ; Over weight E66.3 and PTSD (post-traumatic stress disorder) F43.[address] [address] 10/08/2024 Keshia Ian Anxiety disorder, unspecified F41.9 ; Over weight E66.3 and PTSD (post-traumatic stress disorder) F43.[address] [address] 12/09/2024 Keshia Ian Anxiety disorder, unspecified F41.9 ; Over weight E66.3 and PTSD (post-traumatic stress disorder) F43.[address] [address] 01/21/2025 Keshia Sosa Anxiety disorder, unspecified F41.9 ; Over weight E66.3 ; PTSD (post-traumatic stress disorder) F43.10 and Mood disorder F39 [address] [address] 03/17/2025 Keshia Soas Anxiety disorder, unspecified F41.9 ; Over weight E66.3 ; Mood disorder F39 and PTSD (post-traumatic stress disorder) F43.[address] [address] 05/14/2024 Keshia Sosa PTSD (post-traumatic stress disorder) F43.10 and Anxiety disorder, unspecified F41.[address], [place] [address] 10/06/2024 Keshia Sosa PTSD (post-traumatic stress disorder) F43.10 Assessments Encounter Date Diagnosis (ICD Code) Assessment Notes Treatment Notes Treatment Clinical Notes Section Notes 05/14/2024 PTSD (post-traumatic stress disorder) (ICD-10 - F43.10) 06/04/2024 Anxiety disorder, unspecified (ICD-10 - F41.9) 07/02/2024 Anxiety disorder, unspecified (ICD-10 - F41.9) 07/30/2024 Anxiety disorder, unspecified (ICD-10 - F41.9) 09/15/2024 Anxiety disorder, unspecified (ICD-10 - F41.9) 10/06/2024 PTSD (post-traumatic stress disorder) (ICD-10 - F43.10) 10/08/2024 Anxiety disorder, unspecified (ICD-10 - F41.9) 12/09/2024 Anxiety disorder, unspecified (ICD-10 - F41.9) 01/21/2025 Anxiety disorder, unspecified (ICD-10 - F41.9) 03/17/2025 Anxiety disorder, unspecified (ICD-10 - F41.9) 12/09/2024 Over weight (ICD-10 - E66.3) 01/21/2025 Over weight (ICD-10 - E66.3) 03/17/2025 Over weight (ICD-10 - E66.3) 09/15/2024 Over weight (ICD-10 - E66.3) 10/08/2024 Over weight (ICD-10 - E66.3) 07/30/2024 PTSD (post-traumatic stress disorder) (ICD-10 - F43.10) Continue medications. Continue Abilify; states she has been taking 4 mgs due to having multiple 2s left, will increase fully to 5 in a few days, f/u in 4 weeks. Take as prescribed. Reviewed purpose (mood stability), benefits, and risks - low blood pressure, metabolic syndrome with high cholesterol or high blood sugars, change in cardiac conduction, nausea, vomiting, temporary or permanent movement disorders, and akathisia. 07/02/2024 PTSD (post-traumatic stress disorder) (ICD-10 - F43.10) Continue medications. Continue Abilify. Take as prescribed. Reviewed purpose (mood stability), benefits, and risks - low blood pressure, metabolic syndrome with high cholesterol or high blood sugars, change in cardiac conduction, nausea, vomiting, temporary or permanent movement disorders, and akathisia. 06/04/2024 PTSD (post-traumatic stress disorder) (ICD-10 - F43.10) Begin Abilify. Take as prescribed. Reviewed purpose (mood stability), benefits, and risks - low blood pressure, metabolic syndrome with high cholesterol or high blood sugars, change in cardiac conduction, nausea, vomiting, temporary or permanent movement disorders, and akathisia. 05/14/2024 Anxiety disorder, unspecified (ICD-10 - F41.9) 09/15/2024 PTSD (post-traumatic stress disorder) (ICD-10 - F43.10) Decrease mirtazapine for weight gain. Continue Abilify; states she has been taking 4 mgs due to having multiple 2s left, will increase fully to 5 in a few days, f/u in 4 weeks. Take as prescribed. Reviewed purpose (mood stability), benefits, and risks - low blood pressure, metabolic syndrome with high cholesterol or high blood sugars, change in cardiac conduction, nausea, vomiting, temporary or permanent movement disorders, and akathisia. 10/08/2024 PTSD (post-traumatic stress disorder) (ICD-10 - F43.10) Decreased mirtazapine for weight gain. Continue Abilify; Take as prescribed. Reviewed purpose (mood stability), benefits, and risks - low blood pressure, metabolic syndrome with high cholesterol or high blood sugars, change in cardiac conduction, nausea, vomiting, temporary or permanent movement disorders, and akathisia. 01/21/2025 Mood disorder (ICD-10 - F39) Start Vraylar. Take as prescribed. Reviewed purpose (mood stability), benefits, and risks - low blood pressure, metabolic syndrome with high cholesterol or high blood sugars, change in cardiac conduction, nausea, vomiting, temporary or permanent movement disorders, and akathisia. Client will greatly benefit from lower metabolic side effect risk with BMI >30. 01/21/2025 PTSD (post-traumatic stress disorder) (ICD-10 - F43.10) Decreased mirtazapine for weight gain at previous appt. No change noted in the negative. Weight gain noted to increase substantially starting around 6 months ago (roughly when Abilify was added on). Stop Abilify, start Vraylar. 12/09/2024 PTSD (post-traumatic stress disorder) (ICD-10 - F43.10) Decreased mirtazapine for weight gain at previous appt. Increase Abilify; Take as prescribed. Reviewed purpose (mood stability), benefits, and risks - low blood pressure, metabolic syndrome with high cholesterol or high blood sugars, change in cardiac conduction, nausea, vomiting, temporary or permanent movement disorders, and akathisia. 03/17/2025 Mood disorder (ICD-10 - F39) Increase to taking daily. Take as prescribed. Reviewed purpose (mood stability), benefits, and risks - low blood pressure, metabolic syndrome with high cholesterol or high blood sugars, change in cardiac conduction, nausea, vomiting, temporary or permanent movement disorders, and akathisia. 03/17/2025 PTSD (post-traumatic stress disorder) (ICD-10 - F43.10) Decreased mirtazapine for weight gain at previous appt. No change noted in the negative. Weight gain noted to increase substantially starting around 6 months ago (roughly when Abilify was added on). Stop Abilify, start Vraylar. 06/04/2024 Other Reasons, potential benefits, potential risks, interactions and side effects of all medications were discussed. The Patient/Guardian asked appropriate questions, appeared to understand the answers, and decided to accept the treatment and continue being followed. Alternatives and expected course without treatment were reviewed. The Patient/Guardian is aware of the need to contact the office or return for an earlier appointment if any problems or concerns arise. May also contact the 24-hour crisis hotline ([facility]), refer to the closest emergency room or call 911 if new symptoms arise of existing symptoms worsen. The Patient/Guardian is aware that this would apply to symptoms like: suicidal ideation, homicidal ideation, high risk behaviors, manic symptoms, psychotic symptoms, physical symptoms, or any other symptoms that may be dangerous to self or others. Greater than 50% of time spent on coordination and counseling where psychopharmacology as well as psychotherapeutic interventions were discussed along with review of treatments in the past. Education provided concerning need for adequate hydration. Patient/Guardian verbalized understanding of education, treatment plan and follow up. This session was completed telephonically with client/parental/guard berenice consent: Unable to determine movement status, assess appearance, affect, AIMS, or vital signs. 07/02/2024 Other Reasons, potential benefits, potential risks, interactions and side effects of all medications were discussed. The Patient/Guardian asked appropriate questions, appeared to understand the answers, and decided to accept the treatment and continue being followed. Alternatives and expected course without treatment were reviewed. The Patient/Guardian is aware of the need to contact the office or return for an earlier appointment if any problems or concerns arise. May also contact the 24-hour crisis [facility] ([facility]), refer to the closest emergency room or call 911 if new symptoms arise of existing symptoms worsen. The Patient/Guardian is aware that this would apply to symptoms like: suicidal ideation, homicidal ideation, high risk behaviors, manic symptoms, psychotic symptoms, physical symptoms, or any other symptoms that may be dangerous to self or others. Greater than 50% of time spent on coordination and counseling where psychopharmacology as well as psychotherapeutic interventions were discussed along with review of treatments in the past. Education provided concerning need for adequate hydration. Patient/Guardian verbalized understanding of education, treatment plan and follow up. This session was completed telephonically with client/parental/guard berenice consent: Unable to determine movement status, assess appearance, affect, AIMS, or vital signs. 07/30/2024 Other Reasons, potential benefits, potential risks, interactions and side effects of all medications were discussed. The Patient/Guardian asked appropriate questions, appeared to understand the answers, and decided to accept the treatment and continue being followed. Alternatives and expected course without treatment were reviewed. The Patient/Guardian is aware of the need to contact the office or return for an earlier appointment if any problems or concerns arise. May also contact the 24-hour crisis hotline ([facility]), refer to the closest emergency room or call 911 if new symptoms arise of existing symptoms worsen. The Patient/Guardian is aware that this would apply to symptoms like: suicidal ideation, homicidal ideation, high risk behaviors, manic symptoms, psychotic symptoms, physical symptoms, or any other symptoms that may be dangerous to self or others. Greater than 50% of time spent on coordination and counseling where psychopharmacology as well as psychotherapeutic interventions were discussed along with review of treatments in the past. Education provided concerning need for adequate hydration. Patient/Guardian verbalized understanding of education, treatment plan and follow up. This session was completed telephonically with client/parental/guard berenice consent: Unable to determine movement status, assess appearance, affect, AIMS, or vital signs. 09/15/2024 Other Reasons, potential benefits, potential risks, interactions and side effects of all medications were discussed. The Patient/Guardian asked appropriate questions, appeared to understand the answers, and decided to accept the treatment and continue being followed. Alternatives and expected course without treatment were reviewed. The Patient/Guardian is aware of the need to contact the office or return for an earlier appointment if any problems or concerns arise. May also contact the 24-hour crisis hotline ([facility]), refer to the closest emergency room or call 911 if new symptoms arise of existing symptoms worsen. The Patient/Guardian is aware that this would apply to symptoms like: suicidal ideation, homicidal ideation, high risk behaviors, manic symptoms, psychotic symptoms, physical symptoms, or any other symptoms that may be dangerous to self or others. Greater than 50% of time spent on coordination and counseling where psychopharmacology as well as psychotherapeutic interventions were discussed along with review of treatments in the past. Education provided concerning need for adequate hydration. Patient/Guardian verbalized understanding of education, treatment plan and follow up. 10/08/2024 Other Reasons, potential benefits, potential risks, interactions and side effects of all medications were discussed. The Patient/Guardian asked appropriate questions, appeared to understand the answers, and decided to accept the treatment and continue being followed. Alternatives and expected course without treatment were reviewed. The Patient/Guardian is aware of the need to contact the office or return for an earlier appointment if any problems or concerns arise. May also contact the 24-hour crisis hotline ([facility]), refer to the closest emergency room or call 911 if new symptoms arise of existing symptoms worsen. The Patient/Guardian is aware that this would apply to symptoms like: suicidal ideation, homicidal ideation, high risk behaviors, manic symptoms, psychotic symptoms, physical symptoms, or any other symptoms that may be dangerous to self or others. Greater than 50% of time spent on coordination and counseling where psychopharmacology as well as psychotherapeutic interventions were discussed along with review of treatments in the past. Education provided concerning need for adequate hydration. Patient/Guardian verbalized understanding of education, treatment plan and follow up. This session was completed telephonically with client/parental/guard berenice consent: Unable to determine movement status, assess appearance, affect, AIMS, or vital signs. 12/09/2024 Other Reasons, potential benefits, potential risks, interactions and side effects of all medications were discussed. The Patient/Guardian asked appropriate questions, appeared to understand the answers, and decided to accept the treatment and continue being followed. Alternatives and expected course without treatment were reviewed. The Patient/Guardian is aware of the need to contact the office or return for an earlier appointment if any problems or concerns arise. May also contact the 24-hour crisis hotline ([facility]), refer to the closest emergency room or call 911 if new symptoms arise of existing symptoms worsen. The Patient/Guardian is aware that this would apply to symptoms like: suicidal ideation, homicidal ideation, high risk behaviors, manic symptoms, psychotic symptoms, physical symptoms, or any other symptoms that may be dangerous to self or others. Greater than 50% of time spent on coordination and counseling where psychopharmacology as well as psychotherapeutic interventions were discussed along with review of treatments in the past. Education provided concerning need for adequate hydration. Patient/Guardian verbalized understanding of education, treatment plan and follow up. This session was completed telephonically with client/parental/guard berenice consent: Unable to determine movement status, assess appearance, affect, AIMS, or vital signs. 01/21/2025 Other Reasons, potential benefits, potential risks, interactions and side effects of all medications were discussed. The Patient/Guardian asked appropriate questions, appeared to understand the answers, and decided to accept the treatment and continue being followed. Alternatives and expected course without treatment were reviewed. The Patient/Guardian is aware of the need to contact the office or return for an earlier appointment if any problems or concerns arise. May also contact the 24-hour crisis hotline ([facility]), refer to the closest emergency room or call 911 if new symptoms arise of existing symptoms worsen. The Patient/Guardian is aware that this would apply to symptoms like: suicidal ideation, homicidal ideation, high risk behaviors, manic symptoms, psychotic symptoms, physical symptoms, or any other symptoms that may be dangerous to self or others. Greater than 50% of time spent on coordination and counseling where psychopharmacology as well as psychotherapeutic interventions were discussed along with review of treatments in the past. Education provided concerning need for adequate hydration. Patient/Guardian verbalized understanding of education, treatment plan and follow up. This session was completed telephonically with client/parental/guard berenice consent: Unable to determine movement status, assess appearance, affect, AIMS, or vital signs. 03/17/2025 Other Reasons, potential benefits, potential risks, interactions and side effects of all medications were discussed. The Patient/Guardian asked appropriate questions, appeared to understand the answers, and decided to accept the treatment and continue being followed. Alternatives and expected course without treatment were reviewed. The Patient/Guardian is aware of the need to contact the office or return for an earlier appointment if any problems or concerns arise. May also contact the 24-hour crisis hotline ([facility]), refer to the closest emergency room or call 911 if new symptoms arise of existing symptoms worsen. The Patient/Guardian is aware that this would apply to symptoms like: suicidal ideation, homicidal ideation, high risk behaviors, manic symptoms, psychotic symptoms, physical symptoms, or any other symptoms that may be dangerous to self or others. Greater than 50% of time spent on coordination and counseling where psychopharmacology as well as psychotherapeutic interventions were discussed along with review of treatments in the past. Education provided concerning need for adequate hydration. Patient/Guardian verbalized understanding of education, treatment plan and follow up. This session was completed telephonically with client/parental/guard berenice consent: Unable to determine movement status, assess appearance, affect, AIMS, or vital signs. Plan Of Treatment No Information Insurance Providers Payer Name Payer Address Payer Phone Subscriber Number Group Number Insured Name Patient Relationship to Insured Coverage Start Date Coverage End Date [facility] [address] [place] [address] [id number] Ericka Rader Self - patient is the insured 4 [facility] [address] [place] [address] [id number] Ericka Rader Self - patient is the insured 4 Medical (General) History Medical History History ICD Code Prediabetic HTN, medication controlled Surgical History Surgery Date(Month/Year) heart monitor 08/2023 Female Issues, emergency surgery 05/08 26
[2025-03-28 11:00] VITALS: BP 103/69; PULSE 77; RESP 18; TEMP 36.3; O2SAT 98
[2025-03-28] MEDS: TETANUS,DIPHTHERIA,AC PERTUSSIS ADULT (0.5 ML) BOOSTRIX IM (11:12)
--- NOTE | 2025-03-28 11:21 | ED_ITS ---
HPI - Wound/Laceration General Chief Complaint: Wound/Laceration Stated Complaint: stepped on nail Time Seen by Provider: 03/28/25 11:05 Source: patient and RN notes reviewed Mode of arrival: ambulatory Limitations: no limitations History of Present Illness HPI narrative: 59-year-old female patient presents today after stepping on a nail 2 days ago at home. The nail went through her shoe and into the arch of her right foot. No OTC treatment prior to arrival. States the area is sore. She is not UTD on her tetanus vaccine. Related Data Home Medications ?Medication ?Instructions ?Recorded ?Confirmed ?Last Taken ?Type lisinopril 5 mg tablet 5 mg PO DAILY 07/28/2201/27 Unknown History allopurinol 100 mg tablet 100 mg PO DAILY 12/17/2203/12 Unknown History atorvastatin 40 mg tablet 40 mg PO DAILY 12/17/2201/18 Unknown History aspirin 81 mg tablet,delayed 81 mg PO DAILY 02/04/23 0 01/28/24 Unknown History release ergocalciferol (vitamin D2) 1,250 50,000 unit PO WEEKL Y 02/04/23 01/28/24 Unknown History mcg (50,000 unit) capsule empagliflozin 25 mg tablet 25 mg PO DAILY 04/19/2303/12 Unknown History (Jardiance) furosemide 20 mg tablet 10 mg PO DAILY 04/19/2301/18 Unknown History mirtazapine 30 mg tablet 30 mg PO HS 01/28/24 4 Unknown History Allergies Allergy/AdvReac Type Severity Reaction Status Date / Time No Known Allergies Allergy Verified 03/28/25 11:02 [facility] Past Medical History Medical History Elevated cholesterol Hypertension Postmenopausal Endometriosis determined by laparoscopy Seasonal allergies Surgical History Surgical History Hx of laparoscopy X2 Social History Social History Living arrangements: with family 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 Please see nursing chart for further information. There is no relevant family history pertinent to the presenting complaint Exam Narrative: GENERAL: Well-appearing, well-nourished, and in no acute distress. HEAD: Normocephalic, atraumatic. EYES: EOMI. No redness or drainage. Conjunctivae normal. ENT: Mucous membranes pink and moist. NECK: Normal AROM. CHEST: No respiratory distress. EXTREMITIES: Right foot: puncture wound to the medial arch that is mildly tender to palpation. No surrounding erythema, edema. No obvious drainage or red streaking. Distal sensation intact. Capillary refill normal. Pedal pulse normal. SKIN: Warm, dry, no rash. Capillary refill normal. Normal skin turgor. NEURO: No focal deficits. Alert and oriented x3. Gait steady. PSYCH: Normal affect. No signs of depression or anxiety. Course Course Level of Care: Express Care Visit Vital Signs Vital signs: Vital Signs Temperature 97.3 F L 03/28/25 11:00 Pulse Rate 77 03/28/25 11:00 Respiratory Rate 18 03/28/25 11:00 Blood Pressure 103/69 03/28/25 11:00 Pulse Oximetry 98 03/28/25 11:00 Oxygen Delivery Room Air 03/28/25 11:00 Temperature 97.3 F L 03/28/25 11:00 Pulse Rate 77 03/28/25 11:00 Respiratory Rate 18 03/28/25 11:00 Blood Pressure 103/69 03/28/25 11:00 Pulse Oximetry 98 03/28/25 11:00 Oxygen Delivery Room Air 03/28/25 11:00 Reviewed MDM - Wound/Laceration MDM Narrative Medical decision making narrative: 59-year-old female patient presents today after stepping on a nail 2 days ago at home. The nail went through her shoe and into the arch of her right foot. No OTC treatment prior to arrival. States the area is sore. She is not UTD on her tetanus vaccine. Upon exam, puncture wound to the medial arch that is mildly tender to palpation. No surrounding erythema, edema. No obvious drainage or red streaking. Distal sensation intact. Capillary refill normal. Pedal pulse normal. Patient will be placed on prophylactic antibiotics for 5 days, cipro and cephalexin to cover for psedudomonas and staph. Tetanus shot updated. Patient agrees with plan. Vital signs stable. Anticipatory guidance given. ED precautions given. Differential Diagnosis Differential diagnosis: Likely other (Puncture wound, abscess, cellulitis) Critical Care Time Critical Care Time Critical Care Time: No Discharge Plan Discharge Clinical Impression: Puncture wound of foot, right Qualifiers: Encounter type: initial encounter Qualified Code(s): S91.331A - Puncture wound without foreign body, right foot, initial encounter Patient Disposition: Home Condition: Stable Instructions: Antibiotic Form, Puncture Wound in the Foot (ED) Additional Instructions: Your tetanus shot has been updated today. Please take the Cipro as prescribed until gone to help prevent any infection in your foot. As discussed, please keep a close eye on this wound as it can become infected very quickly. If you notice any fever, increased pain, swelling, redness, drainage, or red streaking up your foot or ankle please go to the ER immediately for further evaluation and treatment. Patient Language: Slovenian Prescriptions: New cephalexin 500 mg capsule 500 mg PO Q6H 5 Days Qty: 20 0RF ciprofloxacin HCl 500 mg tablet 500 mg PO Q12H 5 Days Qty: 10 0RF No Action lisinopril 5 mg tablet 5 mg PO DAILY ergocalciferol (vitamin D2) 1,250 mcg (50,000 unit) capsule 50,000 unit PO WEEKLY aspirin 81 mg tablet,delayed release (DR/EC) 81 mg PO DAILY furosemide 20 mg tablet 10 mg PO DAILY Jardiance 25 mg tablet 25 mg PO DAILY mirtazapine 30 mg Tablet 30 mg PO HS atorvastatin 40 mg tablet 40 mg PO DAILY allopurinol 100 mg tablet 100 mg PO DAILY Follow-up/Referrals: Rodrigue,MD Cristopher [Primary Care Provider, Unknown] Time of Disposition: 11:19
== END 2025-03-28 11:23 | disposition home or self-care (01) ==
PROVIDERS: Emergency Provider Nurse Practitioner; PCP Family Medicine
DX: S91.331A Puncture wound without foreign body, right foot, initial encounter (principal); W45.0XXA Nail entering through skin, initial encounter; Z23 Encounter for immunization; I10 Essential (primary) hypertension; E78.00 Pure hypercholesterolemia, unspecified; N80.9 Endometriosis, unspecified; Z79.82 Long term (current) use of aspirin
CPT/HCPCS: 90471; 90715; 99213; G0463